=== PATIENT | male | born 1975 | race Caucasian/White ===

== ENCOUNTER 2019-07-24 16:39 | Emergency (ER) | payer OTHER ==
[2019-07-24] MEDS ORDERED: BUFFERED LIDOCAINE 10 ML SYRINGE SUBQ STA (16:50)
--- NOTE | 2019-07-24 16:51 | ED Physician Documentation ---
PD HPI UPPER EXT INJURY - Stated complaint Stated Complaint: RT TOE INJ - Chief complaint Chief Complaint: Laceration - History obtained from History obtained from: Patient - History of Present Illness Location: Right (33-year-old gentleman who is up-to-date on tetanus dropped a piece of metal on his toe at home just prior to arrival and has a bleeding cut there. No numbness. No other injuries.) Review of Systems Constitutional: reports: Reviewed and negative Ears: reports: Reviewed and negative Throat: reports: Reviewed and negative PD PAST MEDICAL HISTORY - Present Medications Home Medications: Ambulatory Orders Medication Instructions Recorded Confirmed No Known Home Medications 07/24/19 07/24/19 - Allergies Allergies/Adverse Reactions: Allergies Allergy/AdvReac Type Severity Reaction Status Date / Time No Known Drug Allergies Allergy Verified 07/24/19 16:46 PD ED PE NORMAL - Vitals Vital signs reviewed: Yes - General General: Alert and oriented X 3, No acute distress - Extremities Extremities: Other (There is a 3 cm laceration on the at the level of the interphalangeal joint with active bleeding. Normal cap refill and sensation at the tip.) - Neuro Neuro: Alert and oriented X 3, Normal speech Results - Vitals Vitals: Vital Signs - 24 hr 07/24/19 16:44 Temperature 36.1 C L Heart Rate 97 Respiratory 18 Rate Blood Pressure 153/110 H O2 Saturation 96 Oxygen O2 Source Room air Procedures - Laceration (location) R great toe Length in cm: 3 Wound type: Linear Neurovascular status: Sensory intact, Vascular intact Tendon involvement: Tendon intact Anesthesia: Lidocaine 1%, With bicarb Wound Preparation: Irrigated copiously NS Skin layer closure: Nylon, Interrupted, Size #-0 - enter number (4-0), Sutures - enter # (6) Other: Tetanus UTD Complexity: Simple Departure - Departure Disposition: 01 Home, Self Care Clinical Impression: Laceration Condition: Good Record reviewed to determine appropriate education?: Yes Instructions: ED Laceration All Comments: Come back for any signs of infection which would include: Redness, swelling, drainage, increased pain, or fevers. You can wash it soap and water. Keep it covered and moist with bacitracin ointment which is available over the counter; avoid neosporin. Follow-up with your physician in 14 days for suture removal. Your blood pressure was elevated today on check into the emergency department. This does not mean that you have hypertension, it is a common phenomenon to come to the emergency department and have elevated blood pressure. I recommend that you see your primary care physician within the week to have it rechecked when you are feeling better.
--- NOTE | 2019-07-24 17:35 | XRAY Report ---
Reason: toe inj Procedure Date: 07/24/2019 Accession Number: [id number] / [id number] Procedure: XR - Toe(s) RT CPT Code: FULL RESULT: EXAM: RIGHT TOE RADIOGRAPHY EXAM DATE: 07/24/2019 05:07 PM. CLINICAL HISTORY: Right first toe pain after dropping sharp sheet metal on lateral toe. COMPARISON: None. TECHNIQUE: 3 views. FINDINGS: Overlying bandage at the first digit limits visualization. No definite acute findings are seen. No definite acute fracture is seen. No subluxation. IMPRESSION: Overlying bandage at the first digit limits visualization. No definite acute findings are seen. RADIA
[2019-07-24 17:50] VITALS: BP 148/91
== END 2019-07-24 17:50 | disposition home or self-care (01) ==
LOC: ED 16:39
DX: S91.111A Laceration without foreign body of right great toe without damage to nail, initial encounter (principal); W26.8XXA Contact with other sharp object(s), not elsewhere classified, initial encounter; Y92.009 Unspecified place in unspecified non-institutional (private) residence as the place of occurrence of the external cause; R03.0 Elevated blood-pressure reading, without diagnosis of hypertension
CPT/HCPCS: 12002; 73660; 99283

== ENCOUNTER 2022-05-11 13:58 | Outpatient (CLI) | payer OTHER ==
[2022-05-11 14:59] VITALS: BP 125/77
--- NOTE | 2022-05-11 14:59 | SLEEP CARE CONSULTATION ---
Information from patient questionnaire entered by Miguel Lafleur MA. I have reviewed and concur with the information entered by Miguel Lafleur MA. This document represents the service I personally performed and the decisions made by , Klaudia Melendez ARNP. History of Present Illness Service Date and Time: 05/11/2022 1358 Reason for Visit: New patient (ONSET 11/25/2020, ) Chief Complaint: reports: Insomnia, Unrefreshed sleep, Snoring, Excessive daytime sleepiness, Observed pauses in breathing, Fatigue Date of Onset: 3 YEARS Usual bedtime: 8-10 PM Time it takes to fall asleep: HOUR OR LESS Snores at night: Yes Observed to quit breathing while asleep: Yes Sleeps alone due to snoring: Yes Number of times waking at night: 1 THEN CANT SLEEP Reasons for waking at night: reports: Gasping for air (rarely), Other. denies: Choking, Snoring Toss, Turn, or Twitch while sleeping: No Recalls having dreams: Yes Usually gets out of bed at: [id number]; 0700 WEEKENDS Feels refreshed in the morning: No Morning headache: No Sleepy or fatigued during the day: Yes (he states he will nod in the chair when watching TV) Ever fallen asleep while driving: No Takes day naps: No Dreams during day naps: Yes Prior sleep studies: No Additional HPI information: I had the pleasure of seeing YANNI AGUILAR today regarding the possibility of him having a sleep disorder. His current complaints are excessive daytime sleepiness, insomnia, observed pauses in breathing, snoring and unrefreshed sleep. He states he wants to get better sleep. He is waking up feeling fatigued. His is seeing him stop breathing at night. He worries about going to sleep too early and will then wake up early in the morning and not be able to go back to sleep. He will not have a good day after that. He tries to get at least 6 hours of sleep. He states it takes 30 minutes to 1 hour to fall asleep usually. It can depend on how much he does during the day at work. He will have churning thoughts that keep him from falling asleep and worries that will keep him awake. He states that his snoring is so loud that his is sleeping in separate room to be able to sleep. He states there has been occasions (3 times) that he woke up feeling like he was not getting enough air and his chest felt restricted. His brother has sleep apnea and uses a CPAP. - Parasomnia Symptoms Ever been unable to move upon waking from sleep: No Walks in sleep: No Talks in sleep: No Ever acted out dreams in sleep: No Ever felt weak in the knees when startled or emotional: No Bothered by creepy, crawly, restless sensations in legs: Yes (restless, usually in the left) Problems with memory or concentration: Yes (concentration, getting worse) Subjective Initial Bates Sleepiness Scale score: 8 (05/11/2022) Past Medical History Past Medical History: reports: Hypertension (borderline), Other (back issues, bulging disc, left leg involved) Social History The patient's occupation is a [employer]. Patient is and lives in [place]. Have you smoked in the past 12 months: No Alcohol use: Yes Alcohol amount and frequency: 1 X DAILY Caffeine use: Yes Caffeine amount and frequency: 2 X DAILY Family History Family history of sleep disordered breathing: Yes Family Hx Sleep Apnea: Sibling: Sleep apnea - Treated (BROTHER/CPAP USER) Allergies and Home Medications Known drug allergies: No Drug allergies reviewed: Yes (NKDA) Home medication list reviewed: Yes (no daily medications) Allergy and home medication list: Allergies No Known Drug Allergies Allergy (Verified 07/24/19 16:46) Review of Systems Weight gain over past 5 years: 85 lbs Cardiovascular: reports: high blood pressure Respiratory: reports: shortness of breath Ear/Nose/Throat: reports: nasal congestion, tonsillectomy, wisdom teeth removed Endocrine: reports: sluggishness Musculoskeletal: reports: joint pain, neck pain, back pain Physical Exam Vital signs obtained and entered by: Jamaal LAFLEUR CMA AAMA Blood Pressure: 125/77 (RESP 18, PULSE 91, RIGHT, ) Heart Rate: 97 O2 Saturation: 96 (PAPER MASK) Height: 6 ft 2 in Weight: 273 lb (CLOTHES) Body Mass Index: 35.0 BMI Classification: Obese Neck circumference: 16.5 (INCHES) Mouth and throat: narrow oropharynx Soft palate: long Hard palate: arched Uvula: normal Uvula visualization: 25% Mallampati Class III Tongue: enlarged in size with teeth sanchez on lateral edges Tonsils: absent bilaterally Neck: normal w/o lymphadenopathy or thyromegaly Heart: regular rate and rhythm Lungs: clear bilaterally Impression and Plan 1. Suspected Obstructive Sleep Apnea-Hypopnea Syndrome, as suggested by a history of loud and irregular snoring, observed cessation of breath while asleep, gasping or choking in sleep, unrefreshed sleep, cognitive impairment, and excessive daytime sleepiness. Narrow oropharynx and obesity are common predisposing factors for obstructive sleep apnea-hypopnea syndrome. I recommend proceeding to polysomnography to confirm the diagnosis and to assess severity. If the patient has significant sleep disordered breathing, a manual CPAP titration study will also be performed to find the optimal treatment pressure. I informed the patient of what the sleep studies involve and after some discussion, obtained agreement to proceed. The pathophysiology of obstructive sleep apnea-hypopnea syndrome was discussed with the patient and health risks of cardiovascular and cerebrovascular disease if not treated. Risks of drowsy driving discussed in detail and patient advised to avoid long distance driving and to press puller at the first sign of drowsiness. Patient agreed to plan. * Schedule polysomnography * Avoid long distance driving or driving when feeling sleepy. * Avoid alcohol, sedative and muscle relaxant around bedtime. * Attempt to lose weight. * Review instructions provided by trained office staff on how to prepare for the sleep study. * Return for follow-up after sleep study completed. Counseling Topics: Weight loss health impact Visit Type: In Office Time Spent with Patient (minutes): 31 Provider Statement: I spent 100% of the Face to Face Visit with the patient with greater than 50% spent counseling the patient and coordination of care.
== END 2022-05-11 13:59 | disposition home or self-care (01) ==
LOC: SC 13:58
PROVIDERS: ATTEND Nurse Practitioner Family
DX: R06.83 Snoring (principal); G47.8 Other sleep disorders; R06.81 Apnea, not elsewhere classified; G47.10 Hypersomnia, unspecified; R53.83 Other fatigue; I10 Essential (primary) hypertension; E66.9 Obesity, unspecified; Z68.35 Body mass index [BMI] 35.0-35.9, adult
CPT/HCPCS: 99203; 99212

== ENCOUNTER 2022-05-24 19:45 | Outpatient (CLI) | payer OTHER | END 2022-05-24 19:46 | disposition home or self-care (01) | LOC: SC 19:45 | PROVIDERS: ATTEND Nurse Practitioner Family | DX: G47.33 Obstructive sleep apnea (adult) (pediatric) (principal) | CPT/HCPCS: 95810 ==

== ENCOUNTER 2022-05-31 16:10 | Outpatient (CLI) | payer OTHER ==
[2022-05-31 16:52] VITALS: BP 122/80
--- NOTE | 2022-05-31 16:52 | SLEEP CARE CONSULTATION ---
Information from patient questionnaire entered by Miguel Lemons MA. I have reviewed and concur with the information entered by Miguel Lemons MA. This document represents the service I personally performed and the decisions made by , Klaudia Melendez ARNP. History of Present Illness Service Date and Time: 05/31/2022 1610 Initial Mingus Sleepiness Scale score: 8 (05/11/2022) Current Mingus Sleepiness Scale score: 14 (05/31/2022) Additional HPI information: YANNI AGUILAR returns for follow up and results of the recently performed polysomnography. I explained the pathophysiology behind obstructive sleep apnea. We then spent quite a bit of time discussing different treatment options. For mild obstructive sleep apnea, surgery and oral appliance are alternatives to nasal CPAP therapy but in moderate or severe cases, nasal CPAP is the most effective and reliable treatment. Because apnea is primarily in supine position, then positional management therapy could be effective. Methods discussed such as positioning with pillows to prevent supine sleep. I reviewed the impact of weight changes on sleep apnea and strongly recommended losing weight. After some discussion, the patient opted to go with the nasal CPAP therapy. Nasal autoCPAP set at 4-15 cmH20 will be ordered with rationale explained. A manual titration study will be ordered if unable to find optimal pressure with office adjustments. I explained how CPAP machine works and what to expect when using the machine. Using CPAP every night in order to get used to it was emphasized. Patient advised to put CPAP mask on before getting into bed so as not to fall asleep without CPAP. To assist acclimation to CPAP use, it could also be used for a short time during day while reading or watching TV. The patient was instructed to call the CPAP supplier to discuss any mechanical problem that may occur. If the mask given is uncomfortable or is difficult to keep on through the night even with adjustment, contact the CPAP supplier as many will replace with ano ther mask style if notified before 30 days. If snoring or perceives is not getting enough air or too much air from the machine, notify this office. Patient counseled not drink alcohol less than 4 hours before bedtime as it can increase snoring and apnea. Patient was cautioned about risks of drowsy driving until sleepiness symptoms resolve. Patient denies drowsy driving. Sleep Study - Results Type of Sleep Study: Polysomnography (F/U POLY, 05/24/2022 [facility], POS) Prior sleep studies: No Polysomnography/Home Sleep Study results: IMPRESSION: The quality of the study is good. The patient had normal sleep efficiency. Despite moderate sleep fragmentation, the sleep architecture was normal. Respiratory monitoring showed severe obstructive sleep apneahypopnea (AHI = 34.4) associated with frequent arousals, oxyhemoglobin desaturation and moderate hypoxia (charlee oxygen saturation of 68%). The respiratory events occurred independently of sleep stage and body position (supine AHI = 46.2; non-supine = 28.57). Snore was loud in intensity. There was no significant periodic leg movement of sleep. Cardiac rhythm was normal sinus rhythm without significant arrhythmia. No abnormal behavior (parasomnia) observed during the night. Allergies and Home Medications Home medication list reviewed: Yes (no changes) Allergy and home medication list: Allergies No Known Drug Allergies Allergy (Verified 07/24/19 16:46) Review of Systems Review of systems same as previous: Yes (no changes) Physical Exam Vital signs obtained and entered by: ROBERTO CARLOS WOODALL Blood Pressure: 122/80 (resp 18, pulse 68, left) Cuff size: wrist Heart Rate: 68 O2 Saturation: 98 Height: 6 ft 2 in Weight: 267 lb 8 oz (clothes) Weight change since last visit: lost 10 lbs, portion sizes, Body Mass Index: 34.3 BMI Classification: Obese Impression and Plan 1. Obstructive Sleep Apnea-Hypopnea Syndrome, severe, with lowest oxygen saturation of 68%. Obviously this is the cause of the patients symptoms of unrefreshed sleep, and excessive daytime sleepiness. Positive pressure therapy could benefit borderline hypertension. As mentioned above, the patient will be started on nasal autoCPAP therapy with pressure set at 4-15 cmH2O. Compliance guidelines also reviewed. A copy of compliance guidelines will be given for reference at check out. Because the apnea is more severe supine, I instructed to avoid sleeping supine and elevate head using pillow positioning until able to start CPAP use. 2. Hypoxemia, moderate with a charlee oxygen saturation of 68% and 58.4 minutes spent under 89%. His baseline oxygen saturation was normal with an average oxygen saturation of 92%. * Nasal auto CPAP therapy, pressure at 4-15 cm H2O. * Attempt to lose weight. * Avoid alcohol consumption near bedtime. * Avoid supine sleep until using CPAP. * The patient is again cautioned about driving until sleepiness completely resolves. * Return one month after CPAP obtained. I will assess response to therapy and compliance at that time. Counseling Topics: Sleeping position, Weight loss health impact Visit Type: In Office Time Spent with Patient (minutes): 20 Provider Statement: I spent 100% of the Face to Face Visit with the patient with greater than 50% spent counseling the patient and coordination of care.
== END 2022-05-31 16:11 | disposition home or self-care (01) ==
LOC: SC 16:10
PROVIDERS: ATTEND Nurse Practitioner Family
DX: G47.33 Obstructive sleep apnea (adult) (pediatric) (principal); R09.02 Hypoxemia; E66.9 Obesity, unspecified; Z68.34 Body mass index [BMI] 34.0-34.9, adult
CPT/HCPCS: 99212; 99213

== ENCOUNTER 2024-05-01 09:29 | Emergency (ER) | payer OTHER ==
--- NOTE | 2024-05-01 11:38 | ED Physician Documentation ---
History of Present Illness - Stated complaint Stated Complaint: RT LEG INJ - Chief complaint Chief Complaint: Ext Problem - History obtained from History obtained from: Patient - History of Present Illness Pain level max: 5 Pain level now: 5 - Additonal information Additional information: Patient is a 48-year-old male who presents to the emergency department with a right lower extremity injury. He states on Saturday he was pushing a car in the rain when his foot slipped and caused pain to the posterior aspect of the right calf. He states that the pain is continued to worsen, also has some pain in the right ankle itself. Worse with walking, better with rest. Has had swelling in the right lower extremity as well. Review of Systems Constitutional: denies: Fever Musculoskeletal: denies: Neck pain, Back pain Neurologic: denies: Headache, Head injury PD PAST MEDICAL HISTORY - Past Medical History Past Medical History: Yes Cardiovascular: Hypertension - Past Surgical History Past Surgical History: No - Present Medications Home Medications: Ambulatory Orders Medication Instructions Recorded Confirmed lisinopriL [Zestril] 5 mg PO ONCE 05/01/24 05/01/24 - Allergies Allergies/Adverse Reactions: Allergies Allergy/AdvReac Type Severity Reaction Status Date / Time No Known Drug Allergies Allergy Verified 05/01/24 09:49 - Social History Does the pt smoke?: No Smoking Status: Never smoker Does the pt drink ETOH?: Yes Does the pt have substance abuse?: No - Immunizations Immunizations are current?: Yes Immunizations: TDAP current <10years PD ED PE NORMAL - Vitals Vital signs reviewed: Yes - General General: Alert and oriented X 3, No acute distress - HEENT HEENT: Moist mucous membranes - Neck Neck: Supple, no meningeal sign - Cardiac Cardiac: RRR - Respiratory Respiratory: No respiratory distress, Clear bilaterally - Derm Derm: Warm and dry - Extremities Extremities: Other (R calf - mild posterior tenderness and mild ankle swelling. NVI. no skin discoloration. ) - Neuro Neuro: Alert and oriented X 3 - Psych Psych: Normal mood, Normal affect Results - Vitals Vitals: Vital Signs - 24 hr 05/01/24 05/01/24 09:48 12:36 Temperature 36.7 C 36.7 C Heart Rate 81 70 Respiratory 16 17 Rate Blood Pressure 151/91 H 126/89 H O2 Saturation 98 97 Oxygen O2 Source Room air - Rads (name of study) r ankle xray Relevant Findings:: Final report received, See rad report Right tib-fib x-ray Relevant Findings:: Final report received, See rad report PD Medical Decision Making - ED course Complexity details: reviewed results, re-evaluated patient, considered differential, d/w patient, d/w family ED course: No acute findings on right ankle x-ray or right tib-fib x-ray. No evidence of fracture or dislocation. Appears to mostly have pain in his gastrocnemius/soleus. Achilles tendon is intact. No evidence of Achilles tendon rupture. No tenderness along the Achilles tendon. John wrap applied for compression. Will treat as a muscle strain. No evidence of hematoma that needs to be drained. No evidence of compartment syndrome. Compartments are soft. Neurovascular intact. Patient has crutches at home, can be weightbearing as tolerated. He declines any pain medication here or for home. Patient counseled regarding signs and symptoms for which I believe and urgent re-evaluation would be necessary. Patient with good understanding of and agreement to plan and is comfortable going home at this time This document was made in part using voice recognition software. While efforts are made to proofread this document, sound alike and grammatical errors may occur. Departure - Departure Disposition: 01 Home, Self Care Clinical Impression: Strain of right soleus muscle Qualifiers: Encounter type: initial encounter Qualified Code(s): S86.111A - Strain of other muscle(s) and tendon(s) of posterior muscle group at lower leg level, right leg, initial encounter Condition: Good Instructions: ED Strain Muscle Ext Follow-Up: your,doctor in 1 week [Other] Comments: There are no acute findings on x-ray of your right leg. This appears to be a soleus injury/gastrocnemius injury. Recommend compression, ice, elevation and rest. Recommend nonweightbearing until the pain has improved, I would use crutches at home for this. You can use Motrin or Tylenol as needed for pain at home. You can use a neoprene sleeve over the calf as well to provide compression. An John bandage was applied today. Elevate the leg whenever possible. Please return if you worsen. Forms: PCP List Discharge Date/Time: 05/01/24 12:36
--- NOTE | 2024-05-01 12:21 | XRAY Report ---
PROCEDURE: Tib/Fib RT INDICATIONS: R leg pain TECHNIQUE: 2 views of the tibia and fibula were acquired. COMPARISON: Right ankle from the same date. FINDINGS: Bones: No fractures or dislocations. No suspicious bony lesions. Soft tissues: No suspicious soft tissue calcifications or masses. Diffuse soft tissue edema. IMPRESSION: No acute bony abnormality. Reviewed by: Leland Seaman MD on 05/01/2024 12:20 PM PDT Approved by: Leland Seaman MD on 05/01/2024 12:20 PM PDT Station ID: [id number]
--- NOTE | 2024-05-01 12:22 | XRAY Report ---
PROCEDURE: Ankle 3+V RT INDICATIONS: fall, ankle pain TECHNIQUE: 3 views of the ankle were acquired. COMPARISON: None. FINDINGS: Bones: No fractures or dislocations. Ankle mortise is normally aligned. No suspicious bony lesions . Soft tissues: No tibiotalar joint effusion. Achilles tendon appears normal. Diffuse soft tissue tito ma. IMPRESSION: No acute bony abnormality. Diffuse soft tissue edema. Reviewed by: Leland Seaman MD on 05/01/2024 12:20 PM PDT Approved by: Leland Seaman MD on 05/01/2024 12:20 PM PDT Station ID: [id number]
[2024-05-01 12:38] VITALS: BP 126/89; O2SAT 97
== END 2024-05-01 12:36 | disposition home or self-care (01) ==
LOC: ED 09:29
DX: S86.111A Strain of other muscle(s) and tendon(s) of posterior muscle group at lower leg level, right leg, initial encounter (principal); W18.49XA Other slipping, tripping and stumbling without falling, initial encounter; Y93.89 Activity, other specified; Y92.9 Unspecified place or not applicable
CPT/HCPCS: 99283; 99284

== ENCOUNTER 2024-05-19 09:28 | Outpatient (CLI) | payer OTHER ==
--- NOTE | 2024-05-19 11:40 | MRI Report ---
PROCEDURE: Lower Leg (Tib-Fib) RT WO INDICATIONS: R LOWER LEF PAIN. Rule out any muscular or tendon tears. TECHNIQUE: Noncontrast coronal and sagittal T1 spin echo and STIR; axial T1 spin echo and T2 fast spin echo with fat saturation through the right tibia/fibula. COMPARISON: Right tibia/fibular radiographs 05/01/2024 FINDINGS: Image quality: Excellent. Bones: The visualized bone marrow demonstrates normal signal on all sequences. The overlying cortex appears intact. No fractures lines or intra-osseous lesions. Soft tissues: There is high-grade tearing of the proximal Achilles tendon at the myotendinous juncti on. Some of the medial soleus tendon fibers remain continuous with the distal Achilles tendon. There is separation of the torn tendon fibers by up to 2.5 cm. Soft tissue edema is seen diffusely within t he soleus muscle with areas of fluid signal intensity medially. Mild intramuscular edema is also seen within the posterior tibialis, flexor digitorum longus, and flexor hallucis longus muscles. Mild sub cutaneous edema is seen throughout the lower leg. IMPRESSION: 1.High-grade partial tearing of the Achilles tendon at the myotendinous junction with retraction of t orn tendon fibers by up to 2.5 cm. A few attenuated soleus tendon fibers remain in continuity mediall y. 2.Grade 1-2 strain of the soleus muscle. Grade 1 strains of the posterior tibialis, flexor digitorum longus, and flexor hallucis longus muscles. 3.No acute osseous abnormality. Reviewed by: Maximino King MD on 05/19/2024 11:39 AM PDT Approved by: Maximino King MD on 05/19/2024 11:39 AM PDT Station ID: [id number]
== END 2024-05-19 09:29 | disposition home or self-care (01) ==
LOC: DI 09:28
PROVIDERS: ATTEND Physician Assistant
DX: S86.011A Strain of right Achilles tendon, initial encounter (principal); S86.811A Strain of other muscle(s) and tendon(s) at lower leg level, right leg, initial encounter

== ENCOUNTER 2024-07-31 13:29 | Outpatient (CLI) | payer OTHER ==
--- NOTE | 2024-07-31 14:29 | Sleep Patient Instructions ---
Sleep Center Visit Summary - Patient Visit Information Reason for Visit: Annual follow-up - Patient Instructions Additional Instructions: You will continue with CPAP therapy with pressure changed to 5-8 cmH2O. Please let us know if the pressure change is uncomfortable and we can make further adjustments of the pressure. A supply prescription will be updated with your DME supplier. We encourage you to continue to try to lose weight. Please follow up with the sleep care office in 1 year. - Clinic Information Contact: [facility] [address] [place] [id number] [email or web address] T: [phone]
--- NOTE | 2024-07-31 14:32 | SLEEP CARE CONSULTATION ---
Information from patient questionnaire entered by Muriel Abdi. I have reviewed and concur with the information entered by Muriel Abdi. This document represents the service I personally performed and the decisions made by , Klaudia Melendez ARNP. History of Present Illness Service Date and Time: 07/31/2024 1329 Previous diagnosis: Severe, Obstructive Sleep Apnea-Hypopnea Syndrome AHI: 34.4 Reason for follow up: annual (Last seen 05/2022) Equipment type: CPAP (Airsense 11, s/u 08/03/22) Equipment obtained from: Other ([facility]; getting supplies) Mask style: Nasal (over the nose) Backup mask available: Yes (other mask) Last cushion change: 1 month or so Prior sleep studies: No Year and Where: 2021 [facility] Type of Sleep Study: Polysomnography (F/U POLY, 05/24/2022 [facility], [place]) HPI additional information: YANNI AGUILAR was diagnosed to have severe, AHI 34.4, obstructive sleep apnea- hypopnea syndrome and returned today for CPAP therapy annual follow-up. Sleep Study - Results Type of Sleep Study: Polysomnography (F/U POLY, 05/24/2022 [facility], [facility]) Prior sleep studies: No CPAP Compliance Data - Data Reviewed with Patient Average duration of nightly device use: 4 h 18 min Compliance rate %: 55 (174/180 days used) Current pressure setting (cmH2O): 4 - 7 ( 6.9 avg pressure used) Average residual AHI: 1.2 Central apnea: 0.2 Obstructive apnea: 0.7 Hypopnea: 0.3 Average large leak: 3.8 L/min Subjective Missed days of use due to: reports: other (taking mask off when asleep) Patient concerns: denies: aerophagia, mask discomfort, air blowing in eyes, mask leak noise, condensation in mask/hose, nasal congestion, dry mouth, nose, throat, epistaxis Observed to snore while using device: No Current pressure setting perceived as: comfortable On therapy, patient: reports: sleeping better, awakening more refreshed, being more awake and alert during the day, more rested overall. denies: drowsiness while driving Initial [place] Sleepiness Scale score: 8 (05/11/2022) Current [place] Sleepiness Scale score: 1 (07/31/2024) Allergies and Home Medications Known drug allergies: No Drug allergies reviewed: Yes Home medication list reviewed: Yes (no changes) Allergy and home medication list: Allergies No Known Drug Allergies Allergy Review of Systems Review of systems same as previous: No (ACL injury) Physical Exam Vital signs obtained and entered by: Klaudia Crook NP Blood Pressure: 134/82 Cuff size: long (left arm) Heart Rate: 80 O2 Saturation: 97 Height: 6 ft 2 in Weight: 279 lb 9.6 oz Weight change since last visit: 12 lb gain Body Mass Index: 35.9 BMI Classification: Obese Impression and Plan 1. Obstructive Sleep Apnea-Hypopnea Syndrome, severe, with fair treatment compliance and good apnea control. On CPAP therapy, the patient has better sleep quality and is more rested overall. He has significant improvement of his sleep apnea and is satisfied with current CPAP therapy. He is taking the mask off at night without meaning to. He does get his mask on every night but is not always keeping it on all night. He says he definitely feels like he could have a little more pressure at times. This may be one reason he is taking his mask off during the night. I will adjust his pressure to 5-8 cmH2O for patient comfort. Patient's apnea severity and rationale for treatment to reduce apnea, improve sleep quality and reduce cardiovascular and cerebrovascular events was reviewed. I also reviewed the benefit of consistent device use of CPAP for borderline hypertension. 2. Obesity, unspecified. Currently patients BMI is 35.9. Obesity increases the risk of apnea, CPAP pressure requirements and overall health risks especially cardiovascular and diabetes. Thus patient is advised to lose weight. * Change auto CPAP pressure to 5-8 cmH2O * Update supply prescription. * Notify me if snoring with mask or feeling that the pressure is too much or too little * Attempt to lose weight * Call this office if any problems using CPAP * Return for follow up in 12 months, or sooner if concerns arise Adjust device pressure to (cmH2O): 5-8 Counseling Topics: Spare mask, Weight loss health impact Prescriptions: Device supplies Follow up with Sleep Care in: 1 year Visit Type: In Office Time Spent with Patient (minutes): 28 Provider Statement: I spent 100% of the Face to Face Visit with the patient with greater than 50% spent counseling the patient and coordination of care.
[2024-07-31 14:39] VITALS: BP 134/82; O2SAT 97
== END 2024-07-31 13:30 | disposition home or self-care (01) ==
LOC: SC 13:29
PROVIDERS: ATTEND Nurse Practitioner Family
DX: G47.33 Obstructive sleep apnea (adult) (pediatric) (principal); E66.9 Obesity, unspecified; Z68.35 Body mass index [BMI] 35.0-35.9, adult
CPT/HCPCS: 99212; 99214